=== PATIENT | female | born 1970 | race Two or more races ===

== ENCOUNTER → 2024-09-06 | Outpatient (CLI) | payer BC, SELFPAY ==
--- NOTE | 2024-09-06 13:26 | XR_ITS ---
Examination: Thoracic spine 3 views Technique one AP lateral coned lateral upper dorsal spine 3 views Exam date and time: September 06, 2024 1349 hours INDICATIONS: Back pain months FINDINGS: Prominent osteopenia Thoracic dextroscoliosis 10 degrees Moderate diffuse thoracic degenerative disc disease IMPRESSION: Moderate diffuse thoracic degenerative disc disease No acute fracture Thoracic dextroscoliosis 10 degrees
--- NOTE | 2024-09-06 13:26 | XR_ITS ---
Examination: Lumbar spine, 5 views Technique: Lumbar spine AP, lateral, coned lateral lower lumbar spine, bilateral obliques 5 views Exam date and time: September 06, 2024 1350 hours INDICATIONS: Low back pain one year radiating down both legs. FINDINGS: Adequate alignment lumbar vertebral bodies No lumbar fracture Mild disc narrowing at the lower 3 lumbar levels No spondylolisthesis IMPRESSION: Mild disc narrowing at the lower 3 lumbar levels
== END | disposition home or self-care (01) ==
PROVIDERS: PCP Internal Medicine; Referring Provider Internal Medicine; Visit Provider Internal Medicine
DX: M48.061 Spinal stenosis, lumbar region without neurogenic claudication (principal)
CPT/HCPCS: 72072; 72110